=== PATIENT | female | born 1965 | race Caucasian/White ===

== ENCOUNTER 2017-04-24 12:44 | Day surgery (SDC) | payer BC ==
[2017-04-24 13:32] LABS: ADD MAN DIFF? NO
[2017-04-24 13:35] LABS: BASOPHILS % 0.4 % (0.0-2.0); EOSINOPHILS # 0.1 10^3/ul (0.0-0.5); HEMATOCRIT 33.3 % (37.0-47.0); HEMOGLOBIN 11.1 g/dl (12.0-16.0); LYMPHOCYTES # 2.8 10^3/ul (0.8-2.9); LYMPHOCYTES % 24.6 % (15.0-51.0); MEAN CORPUSCULAR HEMOGLOBIN 30.4 pg (29.0-33.0); MEAN CORPUSCULAR HGB CONC 33.3 g/dl (32.0-37.0); MEAN CORPUSCULAR VOLUME 91.2 fl (82.0-101.0); MEAN PLATELET VOLUME 11.5 fl (7.4-10.4); MONOCYTE # 0.6 10^3/ul (0.3-0.9); MONOCYTES % 5.6 % (0.0-11.0); NEUTROPHIL # 7.7 10^3/ul (1.6-7.5); PLATELET COUNT 271 10^3/UL (140-415); RED BLOOD COUNT 3.65 10^6/ul (4.20-5.40); RED CELL DISTRIBUTION WIDTH 13.1 % (11.5-14.5)
[2017-04-24 13:35] LABS: WHITE BLOOD COUNT 11.3 10^3/ul (4.8-10.8)
[2017-04-24 13:52] LABS: INR 0.87; PROTIME 11.9 Sec (11.9-14.9); PT RATIO 0.9
[2017-04-24 13:53] LABS: PARTIAL THROMBOPLASTIN TIME 25.8 Sec (25.0-35.0)
[2017-04-24 13:57] LABS: ALANINE AMINOTRANSFERASE 27 IU/L (13-69); ALBUMIN 4.2 g/dl (3.3-4.9); ALKALINE PHOSPHATASE 66 IU/L (42-121); ANION GAP 16 (8-16); ASPARTATE AMINO TRANSFERASE 19 IU/L (15-46); BILIRUBIN,INDIRECT 0.2 mg/dl (0-1.1); BILIRUBIN,TOTAL 0.2 mg/dl (0.2-1.3); BLOOD UREA NITROGEN 13 mg/dl (7-20); CALCIUM 9.3 mg/dl (8.4-10.2); CARBON DIOXIDE 25 mmol/L (21-31); CHLORIDE 106 mmol/L (97-110); CREATININE 0.64 mg/dl (0.44-1.00); GLUCOSE 94 mg/dl (70-220); PHOSPHORUS 3.5 mg/dl (2.5-4.9); POTASSIUM 3.9 mmol/L (3.5-5.1); SODIUM 143 mmol/L (135-144)
[2017-04-24] MEDS ORDERED: ONDANSETRON 4 MG INJ (15:07)
[2017-04-24] MEDS ORDERED: DEXAMETHASONE 4 MG/ML 1 ML INJ (15:07)
[2017-04-24] MEDS ORDERED: FENTAnyl 50 MCG/ML VIAL ×2 (15:07→15:44)
[2017-04-24] MEDS ORDERED: GLYCOPYRROLATE 0.4 MG INJ (15:07)
[2017-04-24] MEDS ORDERED: CEFAZOLIN 1 GM INJ (15:07)
[2017-04-24] MEDS ORDERED: ROCURONIUM 50 MG INJ (15:07)
[2017-04-24] MEDS ORDERED: MIDAZOLAM 1 MG/ML 2 ML INJ (15:07)
[2017-04-24] MEDS ORDERED: NEOSTIGMINE 3 MG/3 ML SYRINGE (15:07)
[2017-04-24] MEDS ORDERED: PROPOFOL 20 ML (15:07)
[2017-04-24] MEDS: CEFAZOLIN 2 GM/50 ML (PMX) 50 ML IVPB (15:14)
[2017-04-24] MEDS ORDERED: DIPHENHYDRAMINE 50 MG INJ IV ×2 (15:30)
[2017-04-24] MEDS ORDERED: IPRATROPIUM (NEB) 0.5 MG/2.5 ML AMP HHN ×2 (15:30)
[2017-04-24] MEDS ORDERED: MEPERIDINE 25 MG INJ IV ×2 (15:30)
[2017-04-24] MEDS ORDERED: ONDANSETRON 4 MG INJ IV (15:30)
[2017-04-24] MEDS ORDERED: EPHEDrine SULFATE 50 MG/5 ML SYG IV ×2 (15:30)
[2017-04-24] MEDS ORDERED: HYDROmorphONE (0.2 MG/ML) 10ML SYG IV ×6 (15:30)
[2017-04-24] MEDS ORDERED: LABETALOL HCL 20MG INJ IV ×2 (15:30)
[2017-04-24] MEDS ORDERED: hydrALAzine 20 MG INJ IV ×2 (15:30)
[2017-04-24] MEDS ORDERED: ALBUTEROL 0.083% (NEB) 2.5 MG/3 ML AMP HHN ×2 (15:30)
[2017-04-24] MEDS ORDERED: MIDAZOLAM 1 MG/ML 2 ML INJ IV ×2 (15:30)
[2017-04-24] MEDS ORDERED: OXYCODONE/ACETAMINOPHEN (5/325) TAB PO ×4 (15:30)
[2017-04-24] MEDS ORDERED: TRIMETHOBENZAMIDE 100 MG/ML VIAL IM ×2 (15:30)
[2017-04-24] MEDS ORDERED: FENTAnyl 50 MCG/ML VIAL IV ×6 (15:30)
[2017-04-24] MEDS: BUPIVACAINE 0.25%/EPI (SDV) 30 ML INJ (15:45)
[2017-04-24] MEDS ORDERED: SUGAMMADEX SODIUM 200 MG/2 ML VIAL IV (16:43)
[2017-04-24] MEDS: ONDANSETRON 4 MG INJ IV (17:49)
== END 2017-04-24 18:44 | disposition home or self-care (01) ==
LOC: SDS 12:44
DX: N73.6 Female pelvic peritoneal adhesions (postinfective) (principal)
CPT/HCPCS: 49329; 80053; 80069; 84703; 85025; 85610; 85730; 88305; 93005